=== PATIENT | female | born 1950 ===

== ENCOUNTER 2024-01-05 08:15 | Inpatient (IN) | payer OTHER ==
[2024-01-05 10:25] LABS: URINE APPEARANCE Clear; URINE BILIRRUBIN Negative (NEGATIVE); URINE BLOOD Negative; URINE COLOR Dark Yellow; URINE GLUCOSE Negative (NEGATIVE); URINE LEUKOCYTE Small; URINE NITRATE Negative; URINE PROTEIN Negative (NEGATIVE); URINE UROBILINOGEN 0.2 E.U./dl
[2024-01-05 10:27] LABS: URINE BACTERIA 476.2 uL (0.0-1933); URINE EPITHELIAL CELLS 65.8 uL (0.0-38.8); URINE RBC 2.7 uL (0.0-20.8); URINE WBC 110.9 uL (0.0-23.2)
[2024-01-05] MEDS ORDERED: IBERSALTAN (10:32)
[2024-01-05] MEDS ORDERED: SYNTHROID125 MCG PO (10:32)
[2024-01-05] MEDS ORDERED: METFORMIN HCL1000 M2 PO (10:33)
[2024-01-05] MEDS ORDERED: GLIMEPIRIDE4 M1 PO (10:33)
[2024-01-05] MEDS ORDERED: NORVASC (10:34)
[2024-01-05] MEDS ORDERED: ADULT ASPIRIN81 MG PO (10:34)
[2024-01-05] MEDS ORDERED: GAVAPENTIN (10:34)
[2024-01-05 10:35] LABS: HEMATOCRIT 37.9 % (36.0-45.00); HEMOGLOBIN 12.9 g/dL (12.0-15.00); MEAN CORPUSCULAR HEMOGLOBIN 29.3 pg (27.00-32.0); MEAN CORPUSCULAR HGB CONC 34.1 g/dl (32.0-36.0); PLATELET COUNT 298 K/uL (150-450)
[2024-01-05 11:02] LABS: ALBUMIN 3.8 gm/dL (3.4-5.0); BILIRUBIN TOTAL 0.53 mg/dL (0.3-1.2); CALCIUM 9.8 mg/dL (8.5-10.1); GFR 54.2; GLOBULINA 4.4 G/DL (2.4-3.5); POTASSIUM 4.41 mEq/L (3.5-5.1); TOTAL PROTEIN 8.2 gm/dL (6.4-8.2)
[2024-01-05 11:13] LABS: INR 1.04; PARTIAL THROMBOPLASTIN TIME 24.5 SECONDS (22.0-34.0); PROTHROMBIN TIME 10.9 SECONDS (9.0-11.5)
[2024-01-11] MEDS ORDERED: TRANEXAMIC ACID 100MG/1ML (1000MG) AMPUL IV ONE ×3 (06:24→08:15)
[2024-01-11] MEDS ORDERED: CEFAZOLIN SODIUM 1,000 MG VIAL ONE (06:24)
[2024-01-11] MEDS ORDERED: BUPIVACAINE HCL/PF 0.5% 30ML ML ONE (06:57)
[2024-01-11] MEDS ORDERED: LIDOCAINE HCL/EPINEPHRINE 10MG/ML 1% 50ML IJ ONE ×2 (06:57→08:30)
[2024-01-11] MEDS ORDERED: POVIDONE-IODINE 3 EA MED..SWAB TOP ONE (06:57)
[2024-01-11] MEDS ORDERED: BUPIVACAINE HCL/PF 0.25% 30ML VIAL InF ONE (08:15)
[2024-01-11] MEDS ORDERED: CEFAZOLIN SODIUM 1,000 MG VIAL IV ONE (08:15)
[2024-01-11] MEDS ORDERED: MORPHINE SULFATE 4 MG/ML VIAL IV ONE (08:30)
[2024-01-11] MEDS ORDERED: KETOROLAC TROMETHAMINE 60 MG VIAL IM ONE (08:30)
[2024-01-11] MEDS ORDERED: ATORVASTATIN CA10 MG (09:22)
[2024-01-11] MEDS ORDERED: AMLODIPINE BESYL5 MG (09:22)
[2024-01-11] MEDS ORDERED: CHLORTHALIDONE25 MG (09:22)
[2024-01-11] MEDS ORDERED: FLONASE16 GM (09:22)
[2024-01-11] MEDS ORDERED: MECLIZINE HCL25 MG (09:22)
[2024-01-11] MEDS ORDERED: GABAPENTIN100 M2 (09:23)
[2024-01-11] MEDS ORDERED: PANTOPRAZOLE SO40 MG (09:23)
[2024-01-11] MEDS ORDERED: FENOFIBRATE145 MG (09:23)
[2024-01-11] MEDS ORDERED: IRBESARTAN300 MG (09:23)
[2024-01-11] MEDS ORDERED: GENTAMICIN SULFATE 40 MG/ML VIAL IV SCH (10:26)
[2024-01-11] MEDS ORDERED: SODIUM CHLORIDE 0.45 % 1,000 ML IV SCH (10:30)
[2024-01-11] MEDS ORDERED: MORPHINE SULFATE 4 MG/ML CARTRIDGE IV PRN (10:30)
[2024-01-11] MEDS ORDERED: MORPHINE SULFATE 2 MG/ML CARTRIDGE IV ONE (10:30)
[2024-01-11] MEDS ORDERED: ONDANSETRON HCL 2 MG/ML VIAL IV PRN (10:30)
[2024-01-11] MEDS ORDERED: CEFAZOLIN SODIUM 1,000 MG VIAL IV SCH (12:00)
[2024-01-11 12:46] LABS: HEMATOCRIT 35.8 % (36.0-45.00); HEMOGLOBIN 11.9 g/dL (12.0-15.00); RED BLOOD COUNT 4.13 M/uL (4.00-6.00)
[2024-01-11] MEDS ORDERED: MetFORMIN HCL 1000 MG TABLET PO SCH (17:00)
[2024-01-11] MEDS ORDERED: AMLODIPINE BESYLATE 5 MG TABLET PO SCH (17:00)
[2024-01-12] MEDS ORDERED: LEVOTHYROXINE SODIUM 125 MCG TABLET PO SCH (06:00)
[2024-01-12 06:53] LABS: HEMOGLOBIN 10.7 g/dL (12.0-15.00); MEAN CELL VOLUME 85.5 fL (80.00-100.00); MEAN CORPUSCULAR HEMOGLOBIN 28.6 pg (27.00-32.0); MEAN CORPUSCULAR HGB CONC 33.5 g/dl (32.0-36.0); PLATELET COUNT 225 K/uL (150-450); RED BLOOD COUNT 3.75 M/uL (4.00-6.00); RED CELL DISTRIBUTION WIDTH 14.3 % (11.5-14.5)
[2024-01-12] MEDS ORDERED: OxyCODONE HCL/APAP UD (PERCOCET) PO PRN (08:15)
[2024-01-12] MEDS ORDERED: BACITRACIN 28.35 GM OINT.TUBE TOP SCH (09:00)
[2024-01-12] MEDS ORDERED: GLIMEPIRIDE 4 MG TABLET PO SCH (09:00)
[2024-01-12] MEDS ORDERED: IRON FUM,PS/FOLIC/BCOMP,C NO.9 1 CAP CAPSULE PO SCH (09:00)
[2024-01-12] MEDS ORDERED: OxyCODONE HCL ER 10MG TAB (OxyCONTIN) PO SCH (09:00)
[2024-01-12] MEDS ORDERED: SENNA/DOCUSATE SODIUM 1 TAB TABLET PO SCH (09:00)
[2024-01-12] MEDS ORDERED: RIVAROXABAN 10 MG TAB PO SCH (09:00)
[2024-01-13 06:53] LABS: HEMATOCRIT 30.4 % (36.0-45.00); HEMOGLOBIN 10.3 g/dL (12.0-15.00); MEAN CORPUSCULAR HEMOGLOBIN 28.7 pg (27.00-32.0); MEAN CORPUSCULAR HGB CONC 33.8 g/dl (32.0-36.0); PLATELET COUNT 215 K/uL (150-450); RED BLOOD COUNT 3.58 M/uL (4.00-6.00); RED CELL DISTRIBUTION WIDTH 14.2 % (11.5-14.5)
[2024-01-13] MEDS ORDERED: XARELTO10 MG PO (08:14)
[2024-01-13] MEDS ORDERED: OXYC1TAB9 PO (08:14)
[2024-01-13] MEDS ORDERED: INTEGRA PLUS C1 EACH PO (08:14)
[2024-01-13] MEDS ORDERED: BACTRIM DS TAB1 EACH PO (08:14)
== END 2024-01-13 16:01 | DRG 470 ==
LOC: O/R 01-11 05:10 → SURH 01-11 08:15
PROVIDERS: ADMIT Orthopaedic Surgery Sports Medicine; ATTEND Orthopaedic Surgery Sports Medicine
PROC: 0SRC0J9 Replacement of Right Knee Joint with Synthetic Substitute, Cemented, Open Approach (ICD-10-PCS; principal; 2024-01-11 10:30)
DX: M17.11 Unilateral primary osteoarthritis, right knee (principal); I10 Essential (primary) hypertension; E78.5 Hyperlipidemia, unspecified; Z20.822 Contact with and (suspected) exposure to COVID-19; E11.9 Type 2 diabetes mellitus without complications